=== PATIENT | male | born 2000 | race African-American/Black ===

== ENCOUNTER 2024-01-15 16:09 | Emergency (ER) | payer OTHER ==
[~2024-01-15] VITALS: Ht 185.4 cm; Wt 65.9 kg
[2024-01-15 16:15] VITALS: BP 128/88; PULSE 83; RESP 18; O2SAT 98
[2024-01-16] MEDS ORDERED: IBUP1TAB5 PO (17:27)
== END 2024-01-15 19:52 | disposition left against medical advice (07) ==
LOC: ER 16:09 → EDBD 16:09 → ER 19:52
DX: M25.561 Pain in right knee (principal); Z53.21 Procedure and treatment not carried out due to patient leaving prior to being seen by health care provider; V87.8XXA Person injured in other specified noncollision transport accidents involving motor vehicle (traffic), initial encounter; Y93.55 Activity, bike riding; Y92.89 Other specified places as the place of occurrence of the external cause; Y99.8 Other external cause status

== ENCOUNTER 2024-01-16 12:51 | Emergency (ER) | payer OTHER ==
[~2024-01-16] VITALS: Ht 188 cm; Wt 66.3 kg
[2024-01-16] MEDS: KETOROLAC TROMETH 30 MG/ML 1ML VIAL IM ONE (16:51)
[2024-01-16] MEDS ORDERED: IBUP1TAB5 PO (17:27)
[2024-01-16 17:31] VITALS: BP 131/62; PULSE 80; RESP 18; TEMP 98.9; O2SAT 97
== END 2024-01-16 17:49 | disposition home or self-care (01) ==
LOC: ER 12:51
DX: M25.461 Effusion, right knee (principal); V86.56XA Driver of dirt bike or motor/cross bike injured in nontraffic accident, initial encounter; Y93.89 Activity, other specified; Y92.89 Other specified places as the place of occurrence of the external cause; Y99.8 Other external cause status
CPT/HCPCS: 73562; 96372; 99283; J1885